=== PATIENT | female | born 1930 | race Caucasian/White ===

== ENCOUNTER 2016-11-26 08:48 | Outpatient (CLI) | payer MEDICARE, MEDICAID ==
[~2016-11-26] VITALS: Ht 170.2 cm; Wt 71.3 kg
[2016-11-26] VITALS (10 sets, daily range): BP systolic 130–182; BP diastolic 66–84; PULSE 61–73; RESP 16; TEMP 96.2–97; O2SAT 90–94; Ht 170.2 cm; Wt 71.3 kg
[~2016-11-26 08:48] MED LIST: ACET-2890 PO; ASCO500T10 PO; ASPI-730 PO; CELE-85 PO; CITA20TA17 PO; DOCU-175 PO; GUAI118S10 PO; GUAI120015 PO; LOSA100T44 PO; MAGN400O4 PO; METF-200 PO; MULT-1175 PO; OXYB5TAB10 PO; PHEN20SP2 PO; SIMV10TA76 PO; mylanta PEG
[2016-11-26] MEDS ORDERED: IRON DEXTRAN 100mg/2ml INJECTION IV ONE (09:15)
[2016-11-26] MEDS ORDERED: NORMAL SALINE IV ONE (11:00)
[2016-11-26] MEDS ORDERED: IRON DEXTRAN IV ONE (11:00)
[2016-11-26] MEDS ORDERED: NS 500 ML IV PRN (14:00)
[2016-11-26] MEDS ORDERED: ASPI-557 PO (15:25)
== END 2016-11-26 15:45 ==
LOC: INF.THER 08:48
PROVIDERS: ATTEND Internal Medicine
DX: D64.9 Anemia, unspecified (principal)
CPT/HCPCS: 96365; 96366; 96375; J1750

== ENCOUNTER → 2016-12-22 | Outpatient (CLI) | payer MEDICARE, MEDICAID ==
[~2016-12-22] MED LIST changes: +ASPI-557 PO
== END ==
LOC: LABNH.A213 01:39
PROVIDERS: ATTEND Internal Medicine
DX: E11.9 Type 2 diabetes mellitus without complications (principal)
CPT/HCPCS: 36415; 83036; P9604

== ENCOUNTER → 2017-01-12 | Outpatient (CLI) | payer MEDICARE, MEDICAID ==
[~2017-01-12] MED LIST changes: -ASPI-730 PO; -MAGN400O4 PO
[2017-01-12 07:37] LABS: BASOPHILS % (AUTO) 0.7 % (0-2); EOSINOPHILS # (AUTO) 0.1 T/MM3 (0-0.5); EOSINOPHILS % (AUTO) 1.9 % (0-4); HCT - HEMATOCRIT 31.8 % (36-46); IMMATURE GRANULOCYTE # (AUTO) 0.01 T/MM3 (0.00-0.03); IMMATURE GRANULOCYTE % (AUTO) 0.2 % (0.0-0.5); LYMPHOCYTES # (AUTO) 1.1 T/MM3 (1-4.8); LYMPHOCYTES % (AUTO) 19.3 % (23-45); MEAN CORPUSCULAR HGB 27.7 UUG (26-34); MEAN CORPUSCULAR HGB CONC(MCHC 31.4 GM/DL (31-37); MEAN CORPUSCULAR VOLUME 88.1 UM3 (80-100); MEAN PLATELET VOLUME 9.9 UM3 (9.4-12.4); MONOCYTES # (AUTO) 0.6 T/MM3 (0-0.8); MONOCYTES % (AUTO) 10.1 % (0-9.0); NEUTROPHILS #(AUTO)-ABSOLUTE 3.8 T/MM3 (1.8-7.7); NEUTROPHILS % (AUTO) 67.8 % (33-66); RED BLOOD COUNT 3.61 M/MM3 (4.00-5.20); WBC - WHITE BLOOD COUNT 5.7 T/MM3 (4.5-11.0)
[2017-01-12 07:50] LABS: ALBUMIN 3.4 G/DL (3.5-5.0); ALBUMIN/GLOBULIN RATIO 1.4 RATIO (1.1-2.2); ALKALINE PHOSPHATASE 53 U/L (38-126); ALT (SGPT) 27 U/L (9-52); ANION GAP 11 MEQ/L (5-15); AST (SGOT) 16 U/L (14-36); BUN/CREATININE RATIO 32 RATIO (6-26); CHLORIDE 110 MEQ/L (98-107); CO2 - CARBON DIOXIDE 24 MEQ/L (22-30); CREATININE 0.6 MG/DL (0.7-1.2); GLOMERULAR FILTRATION RATE 95; GLUCOSE 92 MG/DL (65-110); LDH 278 U/L (313-618); POTASSIUM 3.3 MEQ/L (3.6-5); SODIUM 145 MEQ/L (134-144); TOTAL PROTEIN 5.9 G/DL (6.3-8.2)
== END ==
LOC: LABNH.A213 01:34
PROVIDERS: ATTEND Internal Medicine
DX: E56.8 Deficiency of other vitamins (principal); E78.5 Hyperlipidemia, unspecified; I10 Essential (primary) hypertension
CPT/HCPCS: 36415; 80053; 83615; 85025; P9604

== ENCOUNTER 2018-04-02 17:06 | Inpatient (IN) ==
--- NOTE | 2018-04-02 17:15 | Emergency Department Report ---
General Adult HPI - General Chief complaint: Medical Emergency Stated complaint: pulse and blood pressure issues Time Seen by Provider: 04/02/18 17:15 Source: patient, family Mode of arrival: wheelchair Limitations: other (dementia) - History of Present Illness HPI narrative: 87 F presents to the ED with the chief complaint of tachycardia. Patient denies any pain or discomfort. She was at her care facility when the tachycardia was discovered during a routine vital assessment. No known history of atrial fibrillation. She does not note any exacerbating or remitting factors. No other complaints or associated symptoms. Patient denies any current symptoms or complaints. - Related Data Home Medications Medication Instructions Recorded Confirmed Acetaminophen [Acetaminophen 8 650 mg PO Q4H PRN #0 tab 11/02/16 04/02/18 Hour] Ascorbic Acid 500 mg PO DAILY #0 tab 11/02/16 04/02/18 Celecoxib 200 mg PO DAILY #31 11/02/16 04/02/18 trolamine salicylate 10 % topical 1 applicatio TOP QID PRN g 01/31/18 04/02/18 cream Zoloft (sertraline) 25 mg tablet 25 mg PO HS 32 Days #32 tab 03/20/18 04/02/18 Acetaminophen [Tylenol 8 Hour] 650 mg PO TID 04/02/18 04/02/18 Aspirin [Adult Aspirin Regimen] 81 mg PO DAILY 04/02/18 04/02/18 Cholecalciferol (Vitamin D3) 1,000 unit PO DAILY 04/02/18 04/02/18 [Vitamin D3] Docusate Sodium [Dulcolax Stool 100 mg PO HS 04/02/18 04/02/18 Softener] Guaifenesin/Dextromethorphan 5 ml PO Q4H PRN 04/02/18 04/02/18 [Guaifenesin Dm Syrup] Losartan [Cozaar] 100 mg PO DAILY 04/02/18 04/02/18 Metformin [Glucophage] 500 mg PO BIDWM 04/02/18 04/02/18 Allergies Allergy/AdvReac Type Severity Reaction Status Date / Time aluminum Allergy Intermediate ALUMINUM Verified 04/02/18 17:14 SULFATE - RASH tramadol Allergy Unknown Verified 04/02/18 17:14 Review of Systems Constitutional: Denies: fever, weakness Eyes: Denies: eye pain, eye discharge ENT: Denies: ear pain, throat pain Cardiovascular: Reports: palpitations. Denies: chest pain Respiratory: Denies: cough, dyspnea Gastrointestinal: Denies: abdominal pain, nausea, vomiting, diarrhea Genitourinary: Denies: urgency, dysuria Musculoskeletal: Denies: back pain, arthralgia Integumentary: Denies: erythema, rash Neurological: Denies: headache, numbness Psychiatric: Denies: anxiety, depression Endocrine: Denies: polydipsia, polyuria Hematological/Lymphatic: Denies: easy bruising, lymphadenopathy Allergic/Immunologic: Denies: facial swelling, urticaria [facility] Medical History (Last Reviewed 03/20/18 @ 11:37 by Marcia John MD) Osteoarthritis (Chronic Medical) Myalgia (Chronic Medical) Mitral valve stenosis (Chronic Medical) HTN (hypertension) (Chronic Medical) Hyperlipidemia (Chronic Medical) Diabetes (Chronic Medical) Depression (Chronic Medical) Constipation (Chronic Medical) Mycosis (Chronic Medical) Vitamin D deficiency (Chronic Medical) Pain in throat (Chronic Medical) Polyarthralgia (Chronic Medical) PVD (peripheral vascular disease) (Chronic Medical) Joint pain (Chronic Medical) Sebaceous cyst (Chronic Medical) UTI (urinary tract infection) (Chronic Medical) Surgical History: Cardiac catheterization. Knee surgery, wrist surgery Family History: Reviewed and noncontributory. - Social History Smoking status: Never smoker Substance use type: does not use Alcohol intake frequency: does not drink Housing: [facility] Household members: other Current occupational status: retired Physical Exam - Limitations Limitations: other (dementia) - General General appearance: alert, in no apparent distress - Normal Exams: Head:: Normocephalic without trauma Eyes:: Pupils are PERRLA w/ EOMI, No scleral icterus, irritation, or foreign bodies noted ENMT:: No facial trauma, nasal exudates, pharyngeal erythema, or exudates are noted Dental: No fractured, loose, or missing teeth noted Neck:: Full range of motion, without adenopathy, JVD, bruits or thyromegaly Chest/Respirations:: Clear all hart, with good airflow, and symmetry bilaterally Cardiovascular:: Regular rate and rhythm (irregularly irregular rhythm. Rate 134.), without murmur or gallop, Pulses 2+ all extremities, capillary refill, < 2 seconds all extremities Abdomen:: Bowel sounds positive, soft, non-tender, non-distended, no hepatosplenomegaly, masses or bruits noted Lymphatic:: No lymphadenopathy, or lymphedema noted Musculoskeletal:: No tenderness, or deformity noted, good range of motion, all extremities Integumentary:: No rashes, hives, or bruising noted, hair and nails, without abnormality Neurological:: Patient is alert (alert and oriented 2. No focal deficit.) Psychiatric:: Patient exhibits, appropriate attention, emotion and affect Medical Decision Making - MDM Narrative Medical decision making narrative: Labs / imaging were discussed in detail with the patient and family and questions are answered. Patient is given Cardizem 10 mg IV 1 with improvement of heart rate from 144 bpm to 96 bpm. Patient is started on a Cardizem drip at 5mg/hr which will be titrated to effect. Patient is asymptomatic in the emergency department. Patient is discussed with Dr. Crawley from the hospitalist service who agrees to accept the patient to her service for further evaluation and treatment. Anticoagulation will be left up to the hospitalist service and cardiology. Patient is admitted to the CCU in improved condition. No further orders from accepting physician who is in agreement with the current plan of management. Patient and family are in agreement with the current plan of management. - Differential Diagnosis afib, aflutter, metabolic disorder, dehydration - Lab Data Result diagrams: 04/02/18 17:42 04/02/18 17:42 - Radiology Data No obvious acute cardiopulmonary processes. - EKG Data EKG #1 EKG results narrative: Atrial flutter. Rapid ventricular response. 134 bpm. No STEMI. Critical Care Time Critical Care Time: Yes Total Critical Care Time: 47 Attestation: 47 minutes of critical care time was assessed to the patient due to the need for complex medical decision making, repeated assessment the bedside, potential for decompensation. Patient was started on continuous infusion of Cardizem for rate control. Patient was admitted to the intensive care unit for further evaluation and treatment. Critical care time was spent treating the patient, documenting the medical record, updating the family, and making telephone calls on the patient's behalf. Disposition Clinical Impression: Atrial flutter Qualifiers: Atrial flutter type: unspecified Qualified Code(s): I48.92 - Unspecified atrial flutter Atrial fibrillation Qualifiers: Atrial fibrillation type: unspecified Qualified Code(s): I48.91 - Unspecified atrial fibrillation Disposition: 02 To [facility] [place] Condition: Improved Time of Disposition: 18:00 (Admit. Dr. Crawley. ) - Seen By: physician
[2018-04-02] MEDS ORDERED: SALINE FLUSH 10ml SYRINGE IVF PRN (17:20)
[2018-04-02] MEDS ORDERED: DiltiaZEM 25 MG/5 ML INJECTION IVP ONE (17:25)
[2018-04-02] MEDS: DiltiaZEM Drip 125 MG in NS 125 ML IV SCH (17:49)
[2018-04-02] MEDS ORDERED: SENNA + DOCUSATE TABLET PO PRN (19:26)
[2018-04-02] MEDS ORDERED: METOCLOPRAMIDE 10mg/2ml INJECTION IVP PRN (19:26)
[2018-04-02] MEDS ORDERED: ACETAMINOPHEN 325 MG TABLET PO PRN (19:26)
[2018-04-02 19:34] VITALS: BMI 23.3
--- NOTE | 2018-04-02 19:36 | History & Physical Report ---
History of Present Illness Date: 04/02/18 Chief complaint: elevated heart rate HPI: The patient is a pleasant 87-year-old female long-term patient of Dr. Pat. She has dementia and lives in one of the green houses at [facility]. The patient was in her normal state of health and during routine vitals check today was noted to have a heart rate of 145. She was brought into the emergency room by her daughter and EKG revealed atrial flutter with nonspecific T-wave abnormality and heart rate of 134. The patient was given IV Cardizem and started on a Cardizem drip. Heart rate did improve initially but then increased again to 130. Systolic blood pressure is normal at 135. The patient states that she feels fine. She does not notice any palpitations. She denies any chest discomfort or tightness. She denies any shortness of breath. She denies any lightheadedness. She had a UTI 2-3 weeks ago but otherwise has been well. She denies any dysuria now. She's had no recent fevers, chills or sweats. She has some chronic left shoulder pain and was scheduled to have an x-ray and possible injection in the near future. Review of Systems Review of systems: Comprehensive review of systems is negative other than the above in history of present illness. She does have some chronic incontinence. She does have dementia. Past Medical History Medical History: Medical History (Last Reviewed 03/20/18 @ 11:37 by Marcia John MD) Osteoarthritis (Chronic) Myalgia (Chronic) Mitral valve stenosis (Chronic) HTN (hypertension) (Chronic) Hyperlipidemia (Chronic) Diabetes (Chronic) Depression (Chronic) Constipation (Chronic) Mycosis (Chronic) Vitamin D deficiency (Chronic) Pain in throat (Chronic) Polyarthralgia (Chronic) PVD (peripheral vascular disease) (Chronic) Joint pain (Chronic) Sebaceous cyst (Chronic) UTI (urinary tract infection) (Chronic) Medical History Updates: Myalgias, mitral valve stenosis, hypertension, hyperlipidemia, diabetes, depression, constipation, mycosis, vitamin D deficiency, polyarthralgias, peripheral vascular disease, sebaceous cyst, 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 Knee surgery, wrist surgery, possible procedure for peripheral vascular disease in the past Family History: The patient's mother and one of her sisters had heart disease Family History: As Above - Social History Smoking status: Former smoker Alcohol intake: former Housing: long-term Current occupational status: unemployed (full code) Medications Home Medications Medication Instructions Recorded Confirmed Type Acetaminophen [Acetaminophen 8 650 mg PO Q4H PRN #0 tab 11/02/16 04/02/18 History Hour] Ascorbic Acid 500 mg PO DAILY #0 tab 11/02/16 04/02/18 History Celecoxib 200 mg PO DAILY #31 11/02/16 04/02/18 History trolamine salicylate 10 % topical 1 applicatio TOP QID PRN g 01/31/18 04/02/18 History cream Zoloft (sertraline) 25 mg tablet 25 mg PO HS 32 Days #32 tab 03/20/18 04/02/18 History Acetaminophen [Tylenol 8 Hour] 650 mg PO TID 04/02/18 04/02/18 History Aspirin [Adult Aspirin Regimen] 81 mg PO DAILY 04/02/18 04/02/18 History Cholecalciferol (Vitamin D3) 1,000 unit PO DAILY 04/02/18 04/02/18 History [Vitamin D3] Docusate Sodium [Dulcolax Stool 100 mg PO HS 04/02/18 04/02/18 History Softener] Guaifenesin/Dextromethorphan 5 ml PO Q4H PRN 04/02/18 04/02/18 History [Guaifenesin Dm Syrup] Losartan [Cozaar] 100 mg PO DAILY 04/02/18 04/02/18 History Metformin [Glucophage] 500 mg PO BIDWM 04/02/18 04/02/18 History Allergies Allergy/AdvReac Type Severity Reaction Status Date / Time aluminum Allergy Intermediate ALUMINUM Verified 04/02/18 17:14 SULFATE - RASH tramadol Allergy Unknown Verified 04/02/18 17:14 Exam Vital Signs: Temperature 97.8 F 04/02/18 17:14 Pulse Rate 144 H 04/02/18 17:15 Respiratory Rate 24 04/02/18 17:15 Blood Pressure 137/86 04/02/18 17:14 Pulse Oximetry 97 04/02/18 17:15 Telemetry Rhythm: A-flutter Height/Weight/BMI: Height 1.63 m Weight 62.9 kg Comments: GEN-alert, pleasantly confused, no acute distress HEENT-pupils are equal, round and reactive. Extraocular movements are intact. Oropharynx is moist. NECK-supple, no JVD CV-irregularly irregular with a tachycardic rate, 3/6 systolic murmur CHEST-clear to auscultation bilaterally ABD-soft, nontender with positive bowel sounds -no Van EXT-no edema NEURO-no focal deficits, she does have dementia SKIN-warm and dry and without rashes. 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 Magnesium is normal at 1.7 - Impressions Chest x-ray on my read reveals some rotation, no obvious infiltrates Assessment and Plan Assessment and Plan: Impression New-onset A. fib/flutter with RVR-fairly asymptomatic Reported history of mitral stenosis Hypertension for which she takes losartan Diabetes for which she is on metformin Reported history of ischemic stroke Dementia Peripheral vascular disease Mild anemia Plan Admit as inpatient to CCU. Continue Cardizem drip for now. Discussed risks and benefits of anticoagulation with the patient and her daughter who his DPOA. The patient has not had any history of bleeding disorder. Specifically she has not had GI bleed, hemorrhagic stroke, intracranial bleed or other bleeding disorders. They agree with anticoagulation to decrease risk of stroke. Discussed with Dr. Fuentes, he will see the patient tomorrow. He is in agreement with Cardizem drip and would recommend anticoagulation with Eliquis. The patient has essentially normal renal function. Hold losartan for now while on Cardizem drip Monitor Accu-Cheks and check hemoglobin A1c Check CBC and basic metabolic profile tomorrow Echocardiogram tomorrow DVT Prophylaxis: Eliquis Resuscitation Status: Full Code - Physician Narrative Narrative: Date: 04/02/18 Time: 1932 Hospital Course Summary Disclaimer: The visit summary below is not to be considered part of the above Progress Note.
[2018-04-02] MEDS: SERTRALINE 25 MG TABLET PO SCH (20:26)
[2018-04-02] MEDS: DOCUSATE SODIUM 100 MG CAPSULE PO SCH (20:26)
[2018-04-02] MEDS: APIXABAN 5 MG TABLET PO SCH (20:26)
[2018-04-03] MEDS: DiltiaZEM Drip 125 MG in NS 125 ML IV SCH (05:45)
--- NOTE | 2018-04-03 07:25 | XRay Report ---
Indication: Tachycardia. XR chest 1V: Comparison: None Technique: Single portable upright chest Findings: Patient shows heart size within acceptable limits. Lungs are clear. Mild arteriosclerotic changes are present in the thoracic aorta without aneurysm. Central vascularity is unremarkable. No acute bony findings identified. Impression: No active cardiopulmonary abnormality. .
[2018-04-03] MEDS ORDERED: METFORMIN 500 MG TABLET PO SCH (08:00)
[2018-04-03] MEDS: APIXABAN 5 MG TABLET PO SCH ×2 (09:03→21:42)
--- NOTE | 2018-04-03 11:15 | Cardiology Consult Note ---
History of Present Illness Consult date: 04/02/18 Requesting physician: Marilee Crawley Consult reason: atrial fibrillation Chief complaint: a fib History of present illness: Daphne is an 87-year-old female who is known to Dr. Bailey's practice with a history of PVD, Aortic valve disorder, HTN, HLD, CVA, DM and dementia who is a alf patient of Dr. Pat. She reportedly was in her normal state of health and during routine vitals check was noted to have a heart rate of 145. She was brought into the ED and EKG revealed atrial flutter with nonspecific T- wave abnormality and heart rate of 134. She was given IV Cardizem and started on a Cardizem drip. She did not notice any palpitations, and denied chest discomfort or tightness. She denied shortness of breath, lightheadedness. She had a UTI 2-3 weeks ago but otherwise has been well. She denies any dysuria now. She's had no recent fevers, chills or sweats. She has some chronic left shoulder pain and was scheduled to have an x-ray and possible injection in the near future. She was admitted to CCU in the care of the hospitalist, Dr. Fuentes is consulted for management and we appreciate the consult. She is a poor historian due to dementia and denies complaints, ROS negative. Review of Systems - Constitutional Constitutional: Absent: chills, fatigue, fever(s), weakness - EENMT Eyes: Absent: change in vision Balance: Absent: vertigo Mouth/Throat: Absent: sore throat - Cardiovascular Cardiovascular: Present: heart murmur. Absent: chest pain, syncope, dyspnea on exertion, orthopnea, edema Rhythm: Absent: abnormal rhythm Vascular: Absent: pedal edema - Respiratory Respiratory: Absent: cough, dyspnea, dyspnea on exertion - Gastrointestinal Gastrointestinal: Absent: constipation, diarrhea, nausea, vomiting - Genitourinary Genitourinary: Absent: dysuria - Integumentary/Breasts Integumentary: Absent: rash - Neurological Neurological: Absent: dizziness - Endocrine Endocrine: Absent: palpitations [facility] Patient Stated Medical History Cataracts Yes: Removed 2013 Hypertension Yes Valvular Heart Disease Yes Other Cardiology Yes: PVD Diabetes Mellitus Type 2 Yes Hx Incontinence Yes Hx Urinary Tract Infection Yes Other Yes: Overactive bladder Osteoarthritis Yes Other Musculoskeletal Yes: Joint pain Depression Yes Clinic Medical History (Last Reviewed 03/20/18 @ 11:37 by Marcia John MD) Osteoarthritis (Chronic Medical) Myalgia (Chronic Medical) Mitral valve stenosis (Chronic Medical) HTN (hypertension) (Chronic Medical) Hyperlipidemia (Chronic Medical) Diabetes (Chronic Medical) Depression (Chronic Medical) Constipation (Chronic Medical) Mycosis (Chronic Medical) Vitamin D deficiency (Chronic Medical) Pain in throat (Chronic Medical) Polyarthralgia (Chronic Medical) PVD (peripheral vascular disease) (Chronic Medical) Joint pain (Chronic Medical) Sebaceous cyst (Chronic Medical) UTI (urinary tract infection) (Chronic Medical) Medical History Updates: Myalgias, mitral valve stenosis, hypertension, hyperlipidemia, diabetes, depression, constipation, mycosis, vitamin D deficiency, polyarthralgias, peripheral vascular disease, sebaceous cyst, 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 Knee surgery, wrist surgery, possible procedure for peripheral vascular disease in the past Family History: The patient's mother and one of her sisters had heart disease - Social History Smoking status: Former smoker Substance use type: does not use Alcohol intake: former Alcohol intake frequency: does not drink Housing: alf Household members: other Current occupational status: unemployed (full code) Medications Home Medications Medication Instructions Recorded Confirmed Type Acetaminophen [Acetaminophen 8 650 mg PO Q4H PRN #0 tab 11/02/16 04/02/18 History Hour] Ascorbic Acid 500 mg PO DAILY #0 tab 11/02/16 04/02/18 History trolamine salicylate 10 % topical 1 applicatio TOP QID PRN g 01/31/18 04/02/18 History cream Zoloft (sertraline) 25 mg tablet 25 mg PO HS 32 Days #32 tab 03/20/18 04/02/18 History Acetaminophen [Tylenol 8 Hour] 650 mg PO TID 04/02/18 04/02/18 History Cholecalciferol (Vitamin D3) 1,000 unit PO DAILY 04/02/18 04/02/18 History [Vitamin D3] Docusate Sodium [Dulcolax Stool 100 mg PO HS 04/02/18 04/02/18 History Softener] Guaifenesin/Dextromethorphan 5 ml PO Q4H PRN 04/02/18 04/02/18 History [Guaifenesin Dm Syrup] Losartan [Cozaar] 100 mg PO DAILY 04/02/18 04/02/18 History Metformin [Glucophage] 500 mg PO BIDWM 04/02/18 04/02/18 History Apixaban [Eliquis] 5 mg PO BID tab 04/04/18 Rx Metoprolol Tartrate [Lopressor] 50 mg PO TIDWM tab 04/04/18 Rx Senna + Docusate [Senna Plus 1 tab PO BID PRN tab 04/04/18 Rx Tablet] Allergies Allergy/AdvReac Type Severity Reaction Status Date / Time aluminum Allergy Intermediate ALUMINUM Verified 04/02/18 17:14 SULFATE - RASH tramadol Allergy Unknown Verified 04/02/18 17:14 Exam Vital signs: Temperature 98.2 F 04/03/18 06:15 Pulse Rate 124 H 04/03/18 10:16 Respiratory Rate 28 H 04/03/18 10:16 Blood Pressure 202/84 H 04/03/18 10:16 Pulse Oximetry 93 04/03/18 10:16 - Constitutional no acute distress, well nourished, cooperative - Routine HEENT Exam Head: Present: normocephalic ENT: Present: mucous membranes moist - Routine Neck Exam Absent: JVD, carotid bruit - Routine Chest/Breast/Axilla Exam Chest wall: Absent: tenderness - Routine Respiratory Exam Present: CTA bilaterally. Absent: dyspnea, rales, wheezes - Routine Cardiovascular Exam Present: murmur (III/), irregularly irregular - Routine Abdominal Exam Present: soft, non tender - Routine Extremities Exam Present: no edema - Routine Skin Exam Present: intact, dry, warm - Routine Neurological Exam Present: alert, oriented X3 - Routine Psychiatric Exam Present: normal affect, normal thought process Results 04/04/18 03:34 04/04/18 03:34 Cardiac Enzymes 04/02/18 Range/Units 17:42 AST 14 (14-36) U/L Troponin I 0.018 (0-0.12) ng/ml CBC 04/02/18 04/03/18 Range/Units 17:42 04:14 WBC 5.9 4.7 (4.5-11.0) T/MM3 RBC 4.17 3.79 L (4.00-5.20) M/MM3 Hgb 11.4 L 10.2 L (12-16) GM/DL Hct 36.0 32.5 L (36-46) % Plt Count 331 298 (130-400) T/MM3 Neut # (Auto) 4.4 2.8 (1.8-7.7) T/MM3 Lymph # (Auto) 0.8 L 1.2 (1-4.8) T/MM3 Lawrence # (Auto) 0.6 0.6 (0-0.8) T/MM3 Eos # (Auto) 0.1 0.1 (0-0.5) T/MM3 Baso # (Auto) 0.0 0.0 (0-0.2) T/MM3 Comprehensive Metabolic Panel 04/02/18 04/03/18 Range/Units 17:42 04:14 Sodium 142 143 (136-146) MEQ/L Potassium 4.1 3.8 (3.6-5) MEQ/L Chloride 104 106 (98-107) MEQ/L Carbon Dioxide 24 27 (22-30) MEQ/L BUN 29.0 H 27.0 H (7-17) MG/DL Creatinine 1.1 0.8 D (0.7-1.2) mg/dL Glucose 127 H 89 (65-110) MG/DL Calcium 9.7 9.1 (8.4-10.2) MG/DL AST 14 (14-36) U/L ALT 11 (1-35) U/L Alkaline Phosphatase 63 (38-126) U/L Total Protein 7.3 (6.3-8.2) g/dL Albumin 4.4 (3.5-5.0) g/dL Intake and Output 04/02/18 04/03/18 04/03/18 22:59 06:59 14:59 Intake Total 376.458 / 376.458 89 / 89 162.5 / 162.5 Balance 376.458 / 376.458 89 / 89 162.5 / 162.5 Intake: IV 36.458 / 36.458 89 / 89 12.5 / 12.5 DiltiaZEM Drip 125 mg In Ns 125 36.458 / 36.458 89 / 89 12.5 / 12.5 ml @ 5 mls/hr IV .Q24H [facility] Rx# :[id number] NS 500ml 500 ml @ 999.9 mls/hr 0 / 0 IV .Q30M ONE Rx#:[id number] Oral 340 / 340 150 / 150 Other: Urine Odor Strong Strong # Incontinent Voids 1 1 Weight 135 lb 12.876 oz 135 lb 5.821 oz Patient Weight 04/04/18 06:59 Weight 135 lb 5.821 oz - Imaging and Cardiology Imaging & Cardiology Narrative: Date of Exam: 04/03/18 Type of Exam(s): US echo doppler complete DATE OF PROCEDURE 04/03/2018 PROCEDURE PERFORMED 2d echocardiography with M-mode, with full color flow spectral Doppler assessment FINDINGS 1. LEFT VENTRICLE. Left ventricle appears normal in size. There is moderate concentric left ventricular hypertrophy noted. The study is not technically sufficient to allow diastolic function. Overall systolic function appears to be preserved. Estimated left ventricular ejection fraction is 55-60%. 2. RIGHT VENTRICLE. Right ventricle appears normal in size. Normal right ventricular wall thickness is noted. Normal right ventricular systolic function noted. 3. RIGHT ATRIUM. Right atrium appears mildly enlarged. 4. LEFT ATRIUM. Left atrium appears mildly enlarged. 5. MITRAL VALVE. Mitral valve appears normal in structure. There is mild thickening of the leaflet noted. There is mild to moderate mitral regurgitation noted. No significant mitral stenosis noted. 6. AORTIC VALVE. Aortic valve appears trileaflet in structure. There is moderate thickening of all three leaflets noted with moderate to severe calcification of all three leaflets noted. There is moderate aortic stenosis noted. The peak gradient is 34 mmHg and the mean gradient of 21 mmHg with a calculated aortic valve area of 1.2 cm2. There is mild aortic regurgitation noted. 7. TRICUSPID VAVLE. Tricuspid valve appears normal structurally, with mild tricuspid regurgitation noted. 8. PULMONIC VALVE. Pulmonic valve poorly visualized on today's study. There is physiologic pulmonic regurgitation noted. 9. PERICARDIUM. There is a small pericardial effusion noted which is concentric, measures about 1.4 cm in largest dimension. There are no findings of hemodynamic compromise noted due to pericardial effusion. 10. INFERIOR VENA CAVA. Inferior vena cava appears normal in size. There is normal respirophasic variation noted. 11. PULMONARY ARTERY. Estimated pulmonary artery systolic pressure is 40-45 mmHg. CONCLUSION 1. Normal left ventricular systolic function, estimated ejection fraction 55-60 %. 2. Normal RV systolic function. 3. Mild to moderate mitral regurgitation. 4. Moderate aortic stenosis noted with calculated valve area of 1.2 cm2. 5. Mild tricuspid regurgitation noted. 6. Small pericardial effusion noted without signs of hemodynamic compromise. 7. Estimated PA systolic pressure is 40-45 mmHg. Date of Exam: 04/02/18 Ordering Provider: Oscar Collado DO Type of Exam(s): XR chest 1V Reason for Exam(s): Tachycardia. Indication: Tachycardia. XR chest 1V: Comparison: None Technique: Single portable upright chest Findings: Patient shows heart size within acceptable limits. Lungs are clear. Mild arteriosclerotic changes are present in the thoracic aorta without aneurysm. Central vascularity is unremarkable. No acute bony findings identified. Impression: No active cardiopulmonary abnormality. . 04/03/18 14:22 04/04/18 14:47 EKG interpretations - Dysrhythmias Supraventricular dysrhythmia: atrial flutter (HR 134) - Blocks, axis, hypertrophy, ST abn Repolarization changes or abnormalities: nonspecific abnormality, ST segment, and/or T wave Assessment and Plan - Assessment and Plan (1) Atrial flutter Current visit: Yes Status: Acute Metoprolol 50mg po TID for rate control - Wean Cardizem drip - Eliquis for stroke prevention, hold aspirin - 2D echo report pending, small pericardial effusion, moderate /AI per Dr. Alfredo Lao 1.7 yesterday, repeat today and replace - TSH pending - EKG prn rhythm change (2) HTN (hypertension) Current visit: No Status: Chronic Continue Losartan (3) Hyperlipidemia Current visit: No Status: Chronic PCP manages (4) Diabetes Current visit: No Status: Chronic (5) PVD (peripheral vascular disease) Current visit: No Status: Chronic (6) Dementia Current visit: Yes Status: Chronic - Assessment and Plan Atrial flutter Current visit: Yes Status: Acute - Metoprolol 50mg po TID for rate control - Wean Cardizem drip - Eliquis for stroke prevention, hold aspirin - 2D echo report pending, small pericardial effusion, moderate /AI per Dr. Alfredo Lao 1.7 yesterday, repeat today and replace - TSH pending - EKG prn rhythm change HTN (hypertension) Current visit: No Status: Chronic - Continue Losartan Hyperlipidemia Current visit: No Status: Chronic - PCP manages Diabetes Current visit: No Status: Chronic - per attending PVD (peripheral vascular disease) Current visit: No Status: Chronic Dementia Current visit: Yes Status: Chronic Thank you for allowing us to participate in the care of this patient. Hospital Course Summary Disclaimer: The visit summary below is not to be considered part of the above Progress Note.
[2018-04-03] MEDS ORDERED: METOPROLOL 5mg/5ml INJECTION IVP ONE (11:43)
[2018-04-03] MEDS: MAGNESIUM SULFATE 1gm PREMIX 1 GM/100 ML BAG IV SCH ×2 (13:03→13:54)
--- NOTE | 2018-04-03 15:16 | Progress Note ---
- Date 04/03/18 Subjective: Patient was seen this afternoon in CCU. She received metoprolol earlier today and heart rate is now in the 60s. She is still in a flutter. She denies any complaints. She specifically denies chest pain, or pain anywhere. She denies shortness of breath. She states she is eating and drinking okay. She denies any dysuria. Objective Vital signs: Temperature 97.1 F 04/03/18 12:00 Pulse Rate 70 04/03/18 12:00 Respiratory Rate 23 04/03/18 12:00 Blood Pressure 159/70 H 04/03/18 12:00 Pulse Oximetry 96 04/03/18 12:00 Height/Weight/BMI: Height 1.63 m Weight 61.4 kg Body Mass Index 23.3 Comments: Afebrile, heart rate 66, blood pressure 166/68, O2 sat 93% on room air GEN-alert, no acute distress, mildly irritable HEENT-sclera anicteric, oropharynx is moist NECK-supple CV-regular rate and rhythm, 2/6 systolic murmur CHEST-clear to auscultation bilaterally ABD-soft, nontender with positive bowel sounds -no Van EXT-no edema NEURO-no focal deficits, she does have dementia and is often forgetful during the conversation today SKIN-warm and dry, port wine stain present on her chin Results - Labs CBC & Chem 7: 04/03/18 04:14 04/03/18 04:14 Labs: TSH is normal at 3.73 Hemoglobin A1c 5.5 Calcium 9.1 Assessment and Plan Assessment and Plan: Impression New-onset A. fib/flutter with MUQ-injqkvnzmusa-ezhtu rate improved with metoprolol Aortic stenosis moderate/aortic regurg Hypertension for which she takes losartan Diabetes for which she is on metformin Reported history of ischemic stroke Dementia Peripheral vascular disease Mild anemia-drop in hemoglobin from 11.4 yesterday to 10.2 today. Hemoglobin appears to be at baseline currently compared to earlier this summer. Plan Appreciate cardiology consultation. Metoprolol was initiated for rate control with good results. Cardizem drip was discontinued. Losartan will be continued for hypertension. Continue local was for stroke prophylaxis with A. fib. Echo report is pending. Blood sugars are well controlled with A1c of 5.5. Will decrease metformin to 500 mg once daily. Continue to monitor Accu-Cheks. Continue to monitor closely with the patient's dementia. Possible dismissal back to the senior care in the next 1-2 days. Recheck CBC and basic metabolic profile tomorrow. DVT Prophylaxis: Eliquis Resuscitation Status: Full Code - Physician Narrative Narrative: Date: 04/03/18 Time: 1511 Hospital Course Summary Disclaimer: The visit summary below is not to be considered part of the above Progress Note.
[2018-04-03] MEDS: LOSARTAN 100 MG TABLET PO SCH (16:14)
--- NOTE | 2018-04-03 16:59 | Echocardiogram ---
DATE OF PROCEDURE 04/03/2018 PROCEDURE PERFORMED 2d echocardiography with M-mode, with full color flow spectral Doppler assessment FINDINGS 1. LEFT VENTRICLE. Left ventricle appears normal in size. There is moderate concentric left ventricular hypertrophy noted. The study is not technically sufficient to allow diastolic function. Overall systolic function appears to be preserved. Estimated left ventricular ejection fraction is 55-60%. 2. RIGHT VENTRICLE. Right ventricle appears normal in size. Normal right ventricular wall thickness is noted. Normal right ventricular systolic function noted. 3. RIGHT ATRIUM. Right atrium appears mildly enlarged. 4. LEFT ATRIUM. Left atrium appears mildly enlarged. 5. MITRAL VALVE. Mitral valve appears normal in structure. There is mild thickening of the leaflet noted. There is mild to moderate mitral regurgitation noted. No significant mitral stenosis noted. 6. AORTIC VALVE. Aortic valve appears trileaflet in structure. There is moderate thickening of all three leaflets noted with moderate to severe calcification of all three leaflets noted. There is moderate aortic stenosis noted. The peak gradient is 34 mmHg and the mean gradient of 21 mmHg with a calculated aortic valve area of 1.2 cm2. There is mild aortic regurgitation noted. 7. TRICUSPID VAVLE. Tricuspid valve appears normal structurally, with mild tricuspid regurgitation noted. 8. PULMONIC VALVE. Pulmonic valve poorly visualized on today's study. There is physiologic pulmonic regurgitation noted. 9. PERICARDIUM. There is a small pericardial effusion noted which is concentric, measures about 1.4 cm in largest dimension. There are no findings of hemodynamic compromise noted due to pericardial effusion. 10. INFERIOR VENA CAVA. Inferior vena cava appears normal in size. There is normal respirophasic variation noted. 11. PULMONARY ARTERY. Estimated pulmonary artery systolic pressure is 40-45 mmHg. CONCLUSION 1. Normal left ventricular systolic function, estimated ejection fraction 55-60 %. 2. Normal RV systolic function. 3. Mild to moderate mitral regurgitation. 4. Moderate aortic stenosis noted with calculated valve area of 1.2 cm2. 5. Mild tricuspid regurgitation noted. 6. Small pericardial effusion noted without signs of hemodynamic compromise. 7. Estimated PA systolic pressure is 40-45 mmHg. MTDD
[2018-04-03] MEDS ORDERED: HALOPERIDOL 5 MG/ML INJECTION IVP PRN (20:52)
[2018-04-03] MEDS: DOCUSATE SODIUM 100 MG CAPSULE PO SCH (21:42)
[2018-04-03] MEDS: SERTRALINE 25 MG TABLET PO SCH (21:42)
[2018-04-03] MEDS ORDERED: FALL RISK - PHARMACY CONSULT MC ONE (22:48)
[2018-04-04] MEDS ORDERED: METFORMIN 500 MG TABLET PO SCH (08:00)
[2018-04-04] MEDS: LOSARTAN 100 MG TABLET PO SCH (08:45)
[2018-04-04] MEDS: APIXABAN 5 MG TABLET PO SCH (08:45)
--- NOTE | 2018-04-04 11:54 | Extended Care Facility Orders ---
<Grace Priest V - Last Filed: 04/04/18 11:52> Admission Orders Admit to:: [facility] Allergies/Adverse Reactions: Allergies aluminum Allergy (Intermediate, Verified 04/02/18 17:14) ALUMINUM SULFATE - RASH tramadol Allergy (Unknown, Verified 04/02/18 17:14) Admitting Diagnosis: Aflutter with RVR Admitting Physician: Marilee Crawley MD Attending Physician: Marilee Crawley MD Code Status: Full Code Anticiapted Length of Stay: greater than 30 days Rehab Potential: good Rehab Prognosis: good Diet: Regular May use Facility Protocol or Standing Orders: Yes May have flu vaccine: Yes - Additional Information In Event of Arrest: Start CPR,call 911,send patient to the ER Referrals: Pedro Bailey MD [Physician] - (Please schedule follow up apt for 2- 4 weeks ) Daisha Garcia MD [Primary Care Provider] - (Please schedule follow up apt for 1 week) <Marilee Crawley - Last Filed: 04/04/18 13:34> Admission Orders Admitting Diagnosis: Aflutter with RVR Admitting Physician: Marilee Crawley MD Attending Physician: Marilee Crawley MD Code Status: Full Code Diet: 04/02/18 Dinner Regular Diet [DIET] Diet Modifications: Shelter Certification: I certify that SNF services are required to be given on an Inpatient basis because of the patients need for residential care on a continuing basis for the condition(s) for which he/she received inpatient hospital services prior to his/her transfer to the SNF. SNF inpatient care is necessary for the following reasons
[2018-04-04 12:07] VITALS: BP 122/96; RESP 16; TEMP 95.8; O2SAT 95
--- NOTE | 2018-04-04 13:15 | Discharge Summary ---
Discharge Information Date of admission: 04/02/18 18:16 Anticipated date of discharge: 04/04/18 Attending Physician: Marilee Crawley MD Primary care physician: Daisha Garcia MD Consults: Cardologist- Ramon Disla Discharge Diagnosis- New-onset A. fib/flutter with OWP-[id number] rate improved with metoprolol Aortic stenosis moderate/aortic regurg Hypertension for which she takes losartan Diabetes for which she is on metformin Reported history of ischemic stroke Dementia Peripheral vascular disease Mild anemia-drop in hemoglobin from 11.4 yesterday to 10.2 today. Hemoglobin appears to be at baseline currently compared to earlier this summer. - Procedures Procedures: None - Laboratory Labs: 04/04/18 03:34 04/04/18 03:34 - Microbiology None - Radiology Radiology: 04/02/18- Chest Xray- No active cardiopulmonary abnormality. 04/03/18- ECHO 1. Normal left ventricular systolic function, estimated ejection fraction 55-60 %. 2. Normal RV systolic function. 3. Mild to moderate mitral regurgitation. 4. Moderate aortic stenosis noted with calculated valve area of 1.2 cm2. 5. Mild tricuspid regurgitation noted. 6. Small pericardial effusion noted without signs of hemodynamic compromise. 7. Estimated PA systolic pressure is 40-45 mmHg. - Pathology None History of Present Illness HPI: The patient is a pleasant 87-year-old female assisted patient of Dr. Pat. She has dementia and lives in one of the [facility]. The patient was in her normal state of health and during routine vitals check today was noted to have a heart rate of 145. She was brought into the emergency room by her daughter and EKG revealed atrial flutter with nonspecific T-wave abnormality and heart rate of 134. The patient was given IV Cardizem and started on a Cardizem drip. Heart rate did improve initially but then increased again to 130. Systolic blood pressure is normal at 135. The patient states that she feels fine. She does not notice any palpitations. She denies any chest discomfort or tightness. She denies any shortness of breath. She denies any lightheadedness. She had a UTI 2-3 weeks ago but otherwise has been well. She denies any dysuria now. She's had no recent fevers, chills or sweats. She has some chronic left shoulder pain and was scheduled to have an x-ray and possible injection in the near future. Objective Vital signs: Temperature 95.8 F L 04/04/18 12:05 Pulse Rate 111 H 04/04/18 12:05 Respiratory Rate 16 04/04/18 12:05 Blood Pressure 122/96 H 04/04/18 12:05 Pulse Oximetry 95 04/04/18 12:05 Height/Weight/BMI: Height 1.63 m Weight 63.5 kg Body Mass Index 23.3 - Constitutional Present: no acute distress, well nourished, well developed - Routine HEENT Exam Eye: Present: EOMI ENT: Present: mucous membranes moist, dentition normal - Routine Respiratory Exam Present: CTA bilaterally. Absent: wheezes - Routine Cardiovascular Exam Present: S1, S2, tachycardia (108). Absent: murmur - Routine Abdominal Exam Present: soft, normoactive bowel sounds, non distended. Absent: tenderness - Routine Extremities Exam Present: no edema - Routine Skin Exam Present: intact, dry, warm - Routine Neurological Exam Present: alert, CN II-XII intact - Routine Lymphatic Exam Lymphatic: Absent: adenopathy - Routine Psychiatric Exam Present: cooperative, paranoid Hospital Course This is a general summary of the patient's hospital course. For more details refer to the complete medical record. Hospital course: 04/02/18- Admission New-onset A. fib/flutter with RVR-fairly asymptomatic Reported history of mitral stenosis Hypertension for which she takes losartan Diabetes for which she is on metformin Reported history of ischemic stroke Dementia Peripheral vascular disease Mild anemia Plan Admit as inpatient to CCU. Continue Cardizem drip for now. Discussed risks and benefits of anticoagulation with the patient and her daughter who his DPOA. The patient has not had any history of bleeding disorder. Specifically she has not had GI bleed, hemorrhagic stroke, intracranial bleed or other bleeding disorders. They agree with anticoagulation to decrease risk of stroke. Discussed with Dr. Fuentes, he will see the patient tomorrow. He is in agreement with Cardizem drip and would recommend anticoagulation with Eliquis. The patient has essentially normal renal function. Hold losartan for now while on Cardizem drip Monitor Accu-Cheks and check hemoglobin A1c Check CBC and basic metabolic profile tomorrow Echocardiogram tomorrow 04/03/18 Appreciate cardiology consultation. Metoprolol was initiated for rate control with good results. Cardizem drip was discontinued. Losartan will be continued for hypertension. Continue local was for stroke prophylaxis with A. fib. Echo report is pending. Blood sugars are well controlled with A1c of 5.5. Will decrease metformin to 500 mg once daily. Continue to monitor Accu-Cheks. Continue to monitor closely with the patient's dementia. Possible dismissal back to the assisted in the next 1-2 days. Recheck CBC and basic metabolic profile tomorrow. 04/04/18- Discharge Patient is seen and examination prior to discharge. Daphne is up in the chair this morning. She is comfortably breathing on room air without any distress. She is very suspicious and talks about the staff sneaking around, make reference of them going in and out of other doors. When asked if she has pain. She says no. Denies having dizziness, chest pain, palpitations or GI complaints. Telemetry is reviewed. She is noted to be mildly tachycardic 100- 110. This is discussed with cardiology team. They recommend continuing on current regimen. This includes 2 new medications- Eliquis 5 milligrams twice a day for anticoagulation as well as metoprolol tartrate 50 milligrams 3 times a day. Patient is instructed to follow-up with primary care provider, Dr. Garcia in 1 week and cardiology in the next 2-4 weeks Patient will be discharged back to [place] in stable condition Time spent with patient: greater than 35 minutes Resuscitation Status: Full Code Discharge Plan - Discharge Disposition Discharge Date: 04/04/18 Disposition: 04 To [facility] Home/Facility *Condition: Improved Reason For Visit (Visit label in EMR): Aflutter with RVR - Discharge Medications *Discharge Medications: New Metoprolol Tartrate [Lopressor] 50 mg PO TIDWM tab Apixaban [Eliquis] 5 mg PO BID tab Senna + Docusate [Senna Plus Tablet] 1 tab PO BID PRN tab PRN Reason: Constipation Continue Ascorbic Acid 500 mg PO DAILY #0 tab Acetaminophen [Acetaminophen 8 Hour] 650 mg PO Q4H PRN #0 tab PRN Reason: PAIN Acetaminophen [Tylenol 8 Hour] 650 mg PO TID Metformin [Glucophage] 500 mg PO BIDWM Losartan [Cozaar] 100 mg PO DAILY Guaifenesin/Dextromethorphan [Guaifenesin Dm Syrup] 5 ml PO Q4H PRN PRN Reason: Cough Docusate Sodium [Dulcolax Stool Softener] 100 mg PO HS Cholecalciferol (Vitamin D3) [Vitamin D3] 1,000 unit PO DAILY Zoloft (sertraline) 25 mg tablet 25 mg PO HS 32 Days #32 tab trolamine salicylate 10 % topical cream 1 applicatio TOP QID PRN g PRN Reason: Pain Discontinued Celecoxib 200 mg PO DAILY #31 Aspirin [Adult Aspirin Regimen] 81 mg PO DAILY - Discharge Packet/Instructions *Diet: Regular *Activity: as tolerated *Pain Management/Treatment: Tylenol as needed *Wound Care: None Additional Instructions: New medications-. Eliquis 5mg BID- New blood thinnner. Lopressor 50 mg TID- Cardiac rate control. Stopped ASA and Celebrex *Expected Signs/Symptoms: Improvement *Notify Physician if: Heart rate is less than 60 consistently or blood pressure systolic less than 100. Also call- If heart rate consistently greater than 120. *During Business Hours Contact: Dr Garcia *After Business Hours Contact: Page oncall for Dr Garcia *Pending Lab/Results: No Pending Lab - Referrals/Follow Up *Referrals/Follow Up: Daisha Garcia MD [Primary Care Provider] - (Please schedule follow up apt for 1 week) Pedro Bailey MD [Physician] - (Please schedule follow up apt for 2- 4 weeks ) - Patient Handouts Patient Handouts: Atrial Flutter (DC) - Dismissal Complete Discharge Instructions are:: Complete Physician Narrative - Narrative Physician: Marilee Crawley MD Attestation Narrative: Date: 04/04/18 Time: 1:35 PM-I examined the patient independently. I reviewed this chart, the patient history, and the AGRICULTURAL CONSULTANT's/PA's documented findings as above. We discussed and formulated the assessment and plan as above with the additions below.-Dr. Crawley The patient was seen this afternoon in her room. She sitting up in a chair. She doesn't care for her lunch. She states she feels okay. She denies any pain. She denies shortness of breath. On telemetry, heart rate has ranged from the upper 80s to lower 100s. On exam she is alert and in no acute distress. She does have dementia which appears to be at baseline. Chest is clear to auscultation. Cardiovascular reveals a borderline tachycardic rate with an irregular rhythm. Abdomen is soft and nontender. Extremities are free of edema. Impression and plan A. fib with RVR-rate controlled with metoprolol 50mg po tid. Eliquis initiated for prophylaxis against stroke. Discussed with the cardiology service and they are in agreement with dismissal on current medications. Continue losartan for hypertension. Dementia appears to be at baseline, she is somewhat suspicious which will likely improve upon return to her usual environment. Will discuss hospital course and discharge plans with Dr. Garcia.
[2018-04-04 14:24] VITALS: PULSE 82
== END 2018-04-04 15:50 | DRG 310 ==
LOC: ED 17:06 → EDHOLD 18:23 → CCU 19:20 → SRG 04-03 16:47
PROVIDERS: ADMIT Internal Medicine; ATTEND Internal Medicine